=== PATIENT | female | born 1975 | race Caucasian/White ===

== ENCOUNTER 2024-07-05 06:22 | Day surgery (SDC) | payer OTHER, SELFPAY ==
[2024-06-15 14:04] VITALS: BMI 36.4
--- NOTE | 2024-07-04 06:26 | W.CON.GYNONC ---
Chief Complaint
-
AIS cervix
History of Present Illness
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
Colposcopy�was�done�in�the�office,�ECC�suggested�endocervical�adenocarcinoma�in�situ�performed�New�.�An endometrial�biopsy�was�also�performed�which�showed�fragments�of�weakly�proliferative�endometrium.�On�February��she
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
mucosal�margin�and�is�present�within�1�mm�of�deep�margin.�Anterior�portion�of�the�cervix�shows�endocervical�adenocarcinoma�in
situ,�involving�endocervical�and�deep�resection�margin�but�negative�for�ectocervical�margin.�ECC�shows�additional�endocervical adenocarcinoma�in�situ.
Past�medical�history�significant�for�hypothyroidism,�restless�leg�syndrome,�depressive�disorder,�endometriosis,�hypertension, interstitial�cystitis,�exercise�induced�asthma Past�surgical�history�significant�for�laparoscopy�200,�LEEP�procedure
Medications�include�losartan,�Bystolic,�Synthroid,�gabapentin,�Lexapro Allergies�include�sulfa�drugs,�latex Family�history�significant�for�mother�and�aunt�with�ovarian�cancer
Medical History
Allergies
Allergies reflect when [facility]
adhesive Allergy (Verified 06/28/24 10:34)
ERYTHEMA/ITCHING
latex Allergy (Verified 06/28/24 10:34)
ERYTHEMA/ITCHING
Sulfa (Sulfonamide Antibiotics) Allergy (Verified 06/28/24 10:34)
Anaphylaxis
Physical Exam
Vital Signs / I&O
Pelvic�Examination: External�normal�labia,�urethra,�anus.�There�is�a�butterfly�shaped�pigmented�lesion�involving�posterior�fourchette�of�the�vagina�just above�the�perineal�body. Vagina:�Normal�mucosa.�
Cervix:�normal�appearance,�no�discharge.�Well�healed�after�recent�conization Uterus:�normal�size.�Bilateral�parametria�do�not�have�any�nodularity�or�fixation Adnexa:�No�pelvic�mass.� RVE:�no�masses�or�nodularity
General:�Well�developed,�well�nourished�patient.�In�no�acute�distress. Head:�Atraumatic�and�normocephalic. Neck:�No�thyromegaly.�No�cervical�lymphadenopathy. Lungs:�Clear�to�auscultation.�Good�air�movement�bilaterally.
Cardiac:�Regular�rate.�Regular�rhythm.�No�murmurs�appreciated. Right�Breast:�No�masses�or�dimpling.�No�nipple�discharge. Left�Breast:�No�masses�or�dimpling.�No�nipple�discharge. Abdomen:�Abdomen�is�soft.�Non�tender�to�palpation.�Non�distended.
Extremities:�No�edema. Hematologic/Lymphatic:�No�palpable�lymphadenopathy. Musculoskeletal:�Normal�range�of�motion.�Strength�and�Tone�are�normal. Skin:Non�jaundiced.�No�petechia.�No�purpura.
Neurologic:�Speech�is�fluent.�Normal�gait�and�station.�Cranial�nerves�intact.
Results
-
[facility],�[facility]�Name:�LORENA Date�of�:�1975 Reason�for�Exam:�D06.0,�R87.810,�C53.0 Exam�Date:�06/13/2024�[id number]�EST Report�Status:�Final Ordering�Provider:�KALYN PCP:�JULIEN
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 TECHNIQUE:�MR�PELVIS�WO�AND�W�CONTRAST COMPARISON:�None. FINDINGS: UTERUS:�3.6�x�4.6�x�7.3�cm.
ENDOMETRIUM:�5�mm�(normal�premenopausal�<16�mm?�postmenopausal�<5�mm�bleeding,�<11�mm�asymptomatic). MYOMETRIUM:�Junctional�zone:�7�mm�(normal�<8�mm).�Myometrium�shows�no�fibroids.
CERVIX:�Junctional�zone�shows�no�disruption.�No�suspicious�mass.�Multiple�nabothian�cysts. VAGINA:�No�suspicious�mass.�Benign�7�mm�Bartholin's�cyst�on�the�right. RIGHT�OVARY:�2�x�1.3�cm.�No�suspicious�mass.
LEFT�OVARY:�3.8�x�2�cm.�No�suspicious�mass.�Benign�ovarian�and�paraovaria
PERITONEUM:�No�free�fluid. RETROPERITONEUM:�No�pelvic�adenopathy.
BLADDER:�No�wall�thickening�or�mass.�7. MSK:�No�marrow�replacing�lesion.�Right�femoral�head�1.2�cm�avascular�necrosis�without�cortical�collapse. OTHER:�Colonic�diverticulosis.�Cholelithiasis. IMPRESSION:
No�suspicious�cervical�mass�is�visualized�on�MRI.�No�junctional�zone�disruption.�No�suspicious�lymph�nodes�in�the�pelvis. Communication:�Routine. ���������FINAL�REPORT��������� Dictated�By:�Aditi Phillips Dictated�Date:�06/13/2024�10:41�ET
Assigned�Physician:�Juan Carlos Acuna
Impression / Plan
-
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
I�am�reassured�that�her�MRI�of�the�pelvis�does�not�show�any�evidence�of�gross�lesions�within�the�cervical�canal. Sandra Gross, 1975 Page 4 of 5
For�definitive�management�I�am�recommending�for�her�to�proceed�with�robotic�assisted�total�laparoscopic�hysterectomy�with bilateral�salpingo�oophorectomy.
We�discussed�pros�and�cons�of�adding�salpingectomy�and�oophorectomy.�Because�of�maternal�history�of�ovarian�cancer�I�am recommending�both�tubes�and�ovaries�to�be�removed�even�though�patient�is�BRCA�tested�and�negative.
Patient�has�a�pigmented�lesion�highly�suspicious�for�V�IN�involving�posterior�vulva�and�vaginal�fourchette.�Partial�simple vulvectomy�will�be�done�at�the�time�of�the�procedure�as�well.
We�discussed�in�detail�the�surgical�procedure�including�3�and�intraoperative�and�postoperative�interventions.�All�her�questions�were
answered�in�detail,�pamphlet�containing�information�about�perioperative�care�was�provided�to�the�patient.�Risk�of�surgery�including
infection�bleeding�injury�to�adjacent�organs�DVT�pulmonary�embolism�and�cardiovascular�complications�were�discussed�and reviewed.�I�am�scheduling�her�surgery�at[facility]�on�[address].�I�have�reviewed�her�labs�which�are�normal.
Of�note�this�patient�has�a�diagnosis�of�interstitial�cystitis,�she�has�not�been�to�a�urologist�for�some�time,�I�am�recommending�that she�is�seen�by�some�of�my�colleagues�at�[facility]
[2024-07-05] VITALS (9 sets, daily range): BP systolic 108–168; BP diastolic 76–114; BMI 36.4
[2024-07-05] MEDS: MOBIC 15 MG PO (11:53)
[2024-07-05] MEDS: NEURONTIN 300 MG PO (11:54)
[2024-07-05] MEDS: TYLENOL 1000 MG PO (11:54)
[2024-07-05] MEDS: HEPARIN 5000 UNITS SC (11:55)
[2024-07-05] MEDS: NORMOSOL-R/PLASMALYTE-A 1000 IV (11:55)
--- NOTE | 2024-07-06 19:49 | W.IMMPOSTOP ---
Surgical Immed Post Op Note
-
Primary Surgeon:
Assisting Surgeon:
Pre-op Diagnosis: Fam Ojeda
Post-op Diagnosis: AIS of cervix, pigmented lesion of the vulva
Procedure Performed:
Robotic TLH BSO,
Injection of cervix with ICG dye, bilateral for mapping and identification of sentinel LN
Robotic assisted laparoscopic pelvic sentinel Ln excision
Partial simple vulvectomy (perineal body)
TAP block
Anesthesia Type: General ET
Specimen / Cultures: Uterue, cervix, R& L tubes and ovaries, R and L ext iliac sentinel LN, perineal body
Estimated Blood Loss: 50
Complications: none
Operative Findings: Normal size uterus and cervix, normal appearing retroperitoneal sentinel LN, perineal body wit irregular pigmentation, 2-3 cm in size. Normal upper abdomen, including liver, diaphragm, spleen, small and large bowel
--- NOTE | 2024-07-06 20:00 | OR.RPT ---
Operative Report
Operative Report
Date of procedure: 07/06/2023
Primary Surgeon: Fam Ojeda
Assisting Surgeon: Thierry Rodney PA-C, Nacho ALONSO
Pre-op Diagnosis: AIS of cervix, pigmented lesion of the vulva
Post-op Diagnosis: same
Procedure Performed:
Robotic TLH BSO,
Injection of cervix with ICG dye, bilateral for mapping and identification of sentinel LN
Robotic assisted laparoscopic pelvic sentinel Ln excision
Partial simple vulvectomy (perineal body)
TAP block
Anesthesia Type: General ET
Specimen / Cultures: Uterue, cervix, R& L tubes and ovaries, R and L ext iliac sentinel LN, perineal body
Estimated Blood Loss: 50
Complications: none
Operative Findings: Normal size uterus and cervix, normal appearing retroperitoneal sentinel LN, perineal body wit irregular pigmentation, 2-3 cm in size. Normal upper abdomen, including liver, diaphragm, spleen, small and large bowel
PROCEDURE IN DETAIL: This patient was taken to the operating room and placed in a supine position. General anesthesia was administered. She was intubated without any difficulty. She was placed in lithotomy position using Yellofin stirrups. Arms
were wrapped in place along the patient's side and all joints were attended to ensure lack of any pressure on any upper or lower extremity. The patient was prepped on the abdomen, perineum, and
vagina. He catheter was inserted under sterile conditions in the bladder. The patent was draped. Timeout procedure was completed. She received appropriate antibiotics preoperatively. We injected 10 cc lidocaine and epinephrine in the lesion on
perineal body. I used needle tip electrocautery and excised an elliptical portion of perineal body in the shape of a butterfly. The skin edges were reapproximated with 3-0 Monocryl placed in an interrupted horizontal mattress fashion. Next, cervix
was dilated , I injected cervix with ICG dye into the cervix at 3 and 9 o'clock at 5 and 10 mm stations for total of 4 ml. Uterine menipulator basket patcher type was placed in the uterus with a 3.5 cm KUSHAL ring. Vaginal cuff occluder was insuffilated.
Veress needle was inserted just below left subcostal margin and pneumoperitoneum was created up to pressure of 50 mmHg. 8 mm robotic port was inserted 25 cm cephalad to symphysis pubis into the peritoneal cavity. A survey of the upper abdomen
reveals liver, stomach, diaphragms, right and left pericolic gutters to be within normal limits. Under direct visualization, TAP block was injected with Ropivacaine and Decadron mixture equally distributed 2 fingerbreadths along the lateral aspect
of right and left subcostal margins just above the peritoneum, but below the muscle. Once this was completed, right and left upper quadrant XI robotic ports were placed and right and left XI robotic ports were placed in the
lateral abdomen. The patient was placed in 28 degree Trendelenburg.
The robotic system was docked. Right and left round ligaments were sealed and divided. Anterior and posterior leads and the broad ligament was dissected open. The course of the ureters were identified bilaterally and a window was created between IP
ligaments and ureters. Both IP ligaments were sealed and divided securely. Tubes and ovaries were left attached to the uterus. I used the near infrared system to identify sentinel lymph nodes
which were along the mid portion of external iliac vessels, both on right and left side of the pelvis and these were collected and submitted to Pathology. Next, bladder flap was sharply developed and advanced below the cervicovaginal junction. Both
uterine arteries were skeletonized. They were sealed 3 times and divided. paracervical and uterosacral ligament were sealed and divided. Circumferential incision was made around the Kushal ring until the specimen was completely detached. Uterus,
cervix, bilateral tubes, and ovaries were removed through the vagina and submitted to pathology. The vaginal apex was closed with 0-Vicryl suture and ligature in a Figure-of-8 fashion at both apices. Following this, V-Loc suture was used to close
the vaginal cuff
starting from right to the left side and back to the right side in 2 layers. We irrigated the pelvis and there was no evidence of bleeding. We inspected the vagina and there was no evidence of lacerations. All ports were removed and pneumoperitoneum
was released. The fascia for all the ports were not closed because they were 8 mm each in size. Skin incisions were closed with 4-0 Monocryl in a subcuticular fashion. The patient was awakened, extubated, and returned back to recovery room in
stable, awake, and extubated condition. Counts of laps, instruments, and needle was correct x2. I was present and scrubbed for the entire procedure as dictated above.
DISPOSITION: To PACU, stable, awake, and extubated.
== END 2024-07-05 19:08 | disposition home or self-care (01) ==
LOC: SDS 06:22
PROVIDERS: ATTENDING PHYSICIAN Obstetrics & Gynecology Gynecologic Oncology; FAMILY PHYSICIAN Family Medicine
DX: D06.9 Carcinoma in situ of cervix, unspecified (principal); N90.89 Other specified noninflammatory disorders of vulva and perineum; N80.03 Adenomyosis of the uterus; N83.202 Unspecified ovarian cyst, left side; N83.201 Unspecified ovarian cyst, right side
CPT/HCPCS: 58571; 56620; 88305; 88307; 88309; 86850; 86900; 86901; 88342